=== PATIENT | female | born 1980 | race Caucasian/White ===

== ENCOUNTER → 2016-10-07 | Outpatient (CLI) | payer BC | LOC: C.PAPS 14:08 | PROVIDERS: ATTEND Obstetrics & Gynecology | DX: Z01.419 Encounter for gynecological examination (general) (routine) without abnormal findings (principal) ==

== ENCOUNTER → 2017-05-18 | Outpatient (CLI) | payer BC ==
--- NOTE | 2017-05-18 21:50 | DIAGNOSTIC IMAGING REPORT ---
R HAND MIN 3 VIEWS ROUTINE CLINICAL HISTORY: Fall with right thumb pain following injury. COMPARISON: None FINDINGS: Alignment of the right hand is anatomic. No acute fracture is identified. Carpal bones are intact. IMPRESSION: No acute fracture or dislocation of the right hand. Electronically signed by: Jose Cesar M.D. 05/18/2017 9:48 PM Dictated Date/Time: 05/18/2017 9:47 PM
== END | disposition home or self-care (01) ==
LOC: C.RAD 21:14
PROVIDERS: ATTEND Family Medicine
DX: S69.91XA Unspecified injury of right wrist, hand and finger(s), initial encounter (principal); W19.XXXA Unspecified fall, initial encounter

== ENCOUNTER → 2017-08-26 | Outpatient (CLI) | payer OTHER ==
--- NOTE | 2017-08-26 12:15 | DIAGNOSTIC IMAGING REPORT ---
L-SPINE MIN 4 VIEWS ROUTINE CLINICAL HISTORY: Lower back pain. COMPARISON: None FINDINGS: Alignment of the lumbar spine is anatomic. No fracture or suspicious lesion is present. Disc spaces are preserved. There is mild endplate osteophytosis. There is mild multilevel facet arthrosis. IMPRESSION: 1. No lumbar spine fracture. 2. Preserved disc spaces with mild multilevel endplate osteophytosis and mild multilevel facet arthrosis of the lumbar spine. Electronically signed by: Jose Cesar M.D. 08/26/2017 12:13 PM Dictated Date/Time: 08/26/2017 12:12 PM
== END | disposition home or self-care (01) ==
LOC: C.RAD1850 11:33
PROVIDERS: ATTEND Family Medicine
DX: M25.78 Osteophyte, vertebrae (principal); M47.26 Other spondylosis with radiculopathy, lumbar region